=== PATIENT | male | born 1995 | race Caucasian/White ===

== ENCOUNTER 2023-09-03 00:10 | Emergency (ER) | payer SELFPAY ==
[~2023-09-03] VITALS: Ht 162.6 cm; Wt 72.6 kg
[2023-09-03 00:20] VITALS: BP 148/68; PULSE 101; RESP 16; TEMP 98; O2SAT 98
[2023-09-03 03:08] VITALS: O2SAT 98
== END 2023-09-03 04:53 | disposition home or self-care (01) ==
LOC: MED 00:10
DX: F10.129 Alcohol abuse with intoxication, unspecified (principal); Y90.9 Presence of alcohol in blood, level not specified
CPT/HCPCS: 70450; 70486; 99284